=== PATIENT | female | born 1990 | race Caucasian/White ===

== ENCOUNTER 2016-07-02 22:07 | Emergency (ER) | payer OTHER ==
[~2016-07-02 22:07] MED LIST: ALBUTEROL17 GM INH; FIORINAL CAPSUL1 CAP PO; FLONASE 0.05% N16 G1; LORTAB 5/500 TA1 TA1 PO; METFORMIN HCL500 M1 PO; PREDNISONE PO; PYRIDIUM PO; ROBITUSSIN PE118 ML PO; TYLENOL #3 PO; ZYRTEC10 M1 PO
== END 2016-07-02 22:43 | disposition home or self-care (01) ==
LOC: SED 22:07
DX: H66.92 Otitis media, unspecified, left ear (principal); F17.210 Nicotine dependence, cigarettes, uncomplicated; Z88.8 Allergy status to other drugs, medicaments and biological substances; Z79.899 Other long term (current) drug therapy
CPT/HCPCS: 99282

== ENCOUNTER 2016-09-14 17:08 | Emergency (ER) | payer OTHER ==
--- NOTE | ~2016-09-14 | CR252 ---
STS. [facility] A Service of [facility] & [facility] RADIOLOGY TEXT RESULTS PATIENT: KINGSTON HANLEY LOCATION: SED : [birth year] UNIT #: [id number] AGE: [address]: Blas Elaine SEX: F ORDER DR: [id number] [address] [address] [id number] E MR#: [id number] Acc #: [id number] NAME: KINGSTON HANLEY : 1990 SEX: F STUDY DATE/TIME: 09/14/2016 18:14 UNIT: SED ROOM: STUDY DESCRIPTION: CR Tibia and Fibula 2 Views Lt Attending Physician: Blas Elaine P.A.-C. Ordering Physician: Blas Elaine P.A.-C. Primary Care Physician: No Primary Care Physician MEDICAL IMAGING REPORT This report is preliminary unless electronic signature is present. EXAM Left tibia/fibula series, 09/14/16. HISTORY Trauma. Fell down steps while carrying a couch. Fell on top and left side. Pain from lower back down to foot. FINDINGS AP and lateral radiographs of the left hip and fibula are presented. Normal bony mineralization. No traumatic fracture or malalignment. Knee and ankle joints appear intact. No soft tissue defect, subcutaneous air, or radiodense foreign body. Dictated by... David Erickson M.D. THIS IS AN ELECTRONICALLY VERIFIED REPORT David Erickson M.D. at 09/15/2016 10:49 PM Amanda TD: 09/15/2016 07:30 JOB #: [id number] MEDICAL IMAGING REPORT Page 1 of 1
--- NOTE | ~2016-09-14 | CR126 ---
STS. [facility] A Service of [facility] & [facility] RADIOLOGY TEXT RESULTS PATIENT: KINGSTON HANLEY LOCATION: SED : 90 UNIT #: [id number] AGE: [address]: Blas Elaine SEX: F ORDER DR: [id number] [address] [address] [id number] E MR#: [id number] Acc #: [id number] NAME: KINGSTON HANLEY : 1990 SEX: F STUDY DATE/TIME: 09/14/2016 18:14 UNIT: SED ROOM: STUDY DESCRIPTION: CR Foot Complete Min 3 View Lt Attending Physician: Blas Elaine P.A.-C. Ordering Physician: Blas Elaine P.A.-C. Primary Care Physician: Primary Care Physician No MEDICAL IMAGING REPORT This report is preliminary unless electronic signature is present. EXAM Left foot series 09/14/2016 HISTORY Trauma. Fell down while carrying a couch. Fall on top and left side 4 hours prior to arrival, pain from lower back down to left foot. FINDINGS AP, lateral and oblique radiographs of the left foot show normal bony mineralization. No traumatic fracture or malalignment. The joint spaces are intact. No soft tissue defect, subcutaneous air or radiodense foreign body. Dictated by... David Erickson M.D. THIS IS AN ELECTRONICALLY VERIFIED REPORT David Erickson M.D. at 09/15/2016 10:49 PM OWEN/roberto carlos TD: 09/15/2016 07:31 JOB #: [id number] MEDICAL IMAGING REPORT Page 1 of 1
--- NOTE | ~2016-09-14 | CR150 ---
STS. [facility] A Service of [facility] & [facility] RADIOLOGY TEXT RESULTS PATIENT: KINGSTON HANLEY LOCATION: SED : 90 UNIT #: [id number] AGE: [address]: Blas Elaine SEX: F ORDER DR: [id number] [address] [address] [id number] E MR#: [id number] Acc #: [id number] NAME: KINGSTON HANLEY : 1990 SEX: F STUDY DATE/TIME: 09/14/2016 18:14 UNIT: SED ROOM: STUDY DESCRIPTION: CR Hip Min 2 Views Lt Attending Physician: Blas Elaine P.A.-C. Ordering Physician: Blas Elaine P.A.-C. Primary Care Physician: No Primary Care Physician MEDICAL IMAGING REPORT This report is preliminary unless electronic signature is present. EXAM Left hip series, 09/14/2016. HISTORY Trauma today 4 hours prior to arrival. Fell down steps while carrying a couch. Cough fell on top and left side. Pain from lower back down to foot. FINDINGS AP radiograph of pelvis presented with frog-leg view of left hip. No traumatic fracture or malalignment. Bony ring of pelvis intact. The bilateral hip joints are intact. Bilateral proximal femurs intact. Periarticular soft tissues unremarkable. Visualized bowel gas pattern normal. Dictated by... David Erickson M.D. THIS IS AN ELECTRONICALLY VERIFIED REPORT David Erickson M.D. at 09/15/2016 10:49 PM Amanda TD: 09/15/2016 07:26 JOB #: [id number] MEDICAL IMAGING REPORT Page 1 of 1
--- NOTE | ~2016-09-14 | CR106 ---
[facility] A Service of [facility] & [facility] RADIOLOGY TEXT RESULTS PATIENT: KINGSTON HANLEY LOCATION: SED : 90 UNIT #: [id number] AGE: [address]: Blas Elaine SEX: F ORDER DR: [id number] [address] [address] [id number] E MR#: [id number] Acc #: [id number] NAME: KINGSTON HANLEY : 1990 SEX: F STUDY DATE/TIME: 09/14/2016 18:14 UNIT: SED ROOM: STUDY DESCRIPTION: CR Femur 2 Views Lt Attending Physician: Blas Elaine P.A.-C. Ordering Physician: Blas Elaine P.A.-C. Primary Care Physician: No Primary Care Physician MEDICAL IMAGING REPORT This report is preliminary unless electronic signature is present. EXAM Left femur series. INDICATIONS 26-year-old female who fell today 4 hours prior to arrival. Fell down steps while carrying a couch and the cough fell on top of the left side. TECHNIQUE Two views left femur. COMPARISON No comparisons. FINDINGS The examination is negative. There is no acute fracture. IMPRESSION 1. Negative left femur. Dictated by... Hammad Luu M.D. THIS IS AN ELECTRONICALLY VERIFIED REPORT Hammad Luu M.D. at 09/17/2016 2:58 PM Gita TD: 09/15/2016 07:18 JOB #: [id number] MEDICAL IMAGING REPORT Page 1 of 1
--- NOTE | ~2016-09-14 | CR181 ---
[facility] A Service [facility] RADIOLOGY TEXT RESULTS PATIENT: KINGSTON HANLEY LOCATION: SED : [birth year] UNIT #: [id number] AGE: [address]: Blas Elaine PAC SEX: F ORDER DR: [id number] [address] [address] [id number] E MR#: [id number] Acc #: [id number] NAME: KINGSTON HANLEY : 1990 SEX: F STUDY DATE/TIME: 09/14/2016 18:14 UNIT: SED ROOM: STUDY DESCRIPTION: CR Lumbar Spine 2 or 3 Views Attending Physician: Blas Elaine P.A.-C. Ordering Physician: Blas Elaine P.A.-C. Primary Care Physician: Primary Care Physician No MEDICAL IMAGING REPORT This report is preliminary unless electronic signature is present. EXAM Lumbar series 09/14/2016 INDICATION 26-year-old female who fell down the steps while carrying a couch today. The couch fell on top of her left side. Symptoms began 4 hours prior to arrival. TECHNIQUE Three views of the lumbar spine. Correlation is made with prior abdomen and pelvis CT 05/22/2014. FINDINGS Vertebral body heights and alignment are preserved. No acute fracture. No significant degenerative change with only minimal disc space narrowing at L5-S1. IMPRESSION Negative. Dictated by... Hammad Luu M.D. THIS IS AN ELECTRONICALLY VERIFIED REPORT Hammad Luu M.D. at 09/17/2016 2:58 PM AMY/roberto carlos TD: 09/15/2016 07:29 JOB #: [id number] MEDICAL IMAGING REPORT [facility] A Service [facility] RADIOLOGY TEXT RESULTS PATIENT: KINGSTON HANLEY LOCATION: SED : [birth year] UNIT #: [id number] AGE: [address]: Blas Elaine PAC SEX: F ORDER DR: Page 1 of 1
--- NOTE | ~2016-09-14 | CR20 ---
STS. [facility] A Service of [facility] & [facility] RADIOLOGY TEXT RESULTS PATIENT: KINGSTON HANLEY LOCATION: SED : [birth year] UNIT #: [id number] AGE: [address]: Blas Elaine SEX: F ORDER DR: [id number] [address] [address] [id number] E MR#: [id number] Acc #: [id number] NAME: KINGSTON HANLEY : 1990 SEX: F STUDY DATE/TIME: 09/14/2016 18:14 UNIT: SED ROOM: STUDY DESCRIPTION: CR Ankle Min 3 Views Lt Attending Physician: Blas Elaine P.A.-C. Ordering Physician: Blas Elaine P.A.-C. Primary Care Physician: Primary Care Physician No MEDICAL IMAGING REPORT This report is preliminary unless electronic signature is present. EXAM Left ankle series 09/14/2016 HISTORY Fall 4 hours prior to arrival today. Fell down steps while carrying a couch. Fall on top and left side. Pain from lower back down to foot. FINDINGS AP, lateral and oblique radiographs of the left ankle show normal bony mineralization. No traumatic fracture or malalignment. Ankle mortise joint intact. No soft tissue defect, subcutaneous air or radiodense foreign body. Dictated by... David Erickson M.D. THIS IS AN ELECTRONICALLY VERIFIED REPORT David Erickson M.D. at 09/15/2016 10:49 PM OWEN/roberto carlos TD: 09/15/2016 07:33 JOB #: [id number] MEDICAL IMAGING REPORT Page 1 of 1
--- NOTE | ~2016-09-14 | CR172 ---
[facility] A Service of [facility] & [facility] RADIOLOGY TEXT RESULTS PATIENT: KINGSTON HANLEY LOCATION: SED : [birth year] UNIT #: [id number] AGE: [address]: Blas Elaine SEX: F ORDER DR: [id number] [address] [address] [id number] E MR#: [id number] Acc #: [id number] NAME: KINGSTON HANLEY : 1990 SEX: F STUDY DATE/TIME: 09/14/2016 18:14 UNIT: SED ROOM: STUDY DESCRIPTION: CR Knee 3 Views Lt Attending Physician: Blas Elaine P.A.-C. Ordering Physician: Blas Elaine P.A.-C. Primary Care Physician: Primary Care Physician No MEDICAL IMAGING REPORT This report is preliminary unless electronic signature is present. EXAM Left knee 09/14/2016 INDICATION Trauma, pain, fell 4 hours prior to arrival today after carrying a couch. Fell down the steps and the couch landed on the top of the left side. TECHNIQUE Three views left knee. No comparisons. FINDINGS No acute fracture. No joint effusion. No significant degenerative change. IMPRESSION Negative. Dictated by... Hammad Luu M.D. THIS IS AN ELECTRONICALLY VERIFIED REPORT Hammad Luu M.D. at 09/17/2016 2:58 PM AMY/roberto carlos TD: 09/15/2016 07:26 JOB #: [id number] MEDICAL IMAGING REPORT Page 1 of 1
[2016-09-14 17:57] LABS: URINE SOURCE CLEAN CATCH
[2016-09-14 17:59] LABS: URINE BILIRUBIN NEG (NEG); URINE BLOOD TRACE-INTACT (NEG); URINE COLOR YELLOW; URINE GLUCOSE 300 MG/DL (NORM); URINE KETONE NEG (NEG); URINE LEUKOCYTE ESTERASE 2+ (NEG); URINE NITRATE NEG (NEG); URINE PROTEIN NEG (NEG); URINE SPECIFIC GRAVITY 1.015 (1.003-1.035); URINE UROBILINOGEN 0.2 MG/DL (NORM)
[2016-09-14 18:00] LABS: MICRO INDICATED? YES; URINE APPEARANCE SL HAZY
[2016-09-14 18:03] LABS: CULTURE INDICATED? YES; URINE BACTERIA 1+ (NEG); URINE SQUAMOUS EPITHELIAL CELL MODERATE /[HPF]; URINE WBC 25-50 /[HPF] (0-5)
== END 2016-09-14 19:32 | disposition home or self-care (01) ==
LOC: SED 17:08
PROVIDERS: Physician Assistant
DX: S39.012A Strain of muscle, fascia and tendon of lower back, initial encounter (principal); S80.02XA Contusion of left knee, initial encounter; N39.0 Urinary tract infection, site not specified; G43.909 Migraine, unspecified, not intractable, without status migrainosus; J45.909 Unspecified asthma, uncomplicated; E28.2 Polycystic ovarian syndrome; Z79.899 Other long term (current) drug therapy; W10.9XXA Fall (on) (from) unspecified stairs and steps, initial encounter
CPT/HCPCS: 29505; 72100; 73502; 73552; 73562; 73590; 73610; 73630; 81003; 84703; 87086; 99284